=== PATIENT | female | born 1975 | race Caucasian/White ===

== ENCOUNTER 2016-12-26 11:14 | Emergency (ER) | payer OTHER ==
[~2016-12-26] VITALS: Ht 167.8 cm; Wt 86.0 kg
[2016-12-26 11:15] VITALS: Ht 167.8 cm; Wt 86.0 kg
[2016-12-26] MEDS ORDERED: ELIM TOP (11:39)
--- NOTE | 2016-12-26 11:43 | ERD ---
ER Documentation Chief Complaint Date/Time DATE: 12/26/16 TIME: 11:41 Chief Complaint COUGH , SWELLING ON FEET X 2 WEEKS , RASH X 1 MONTH HPI 41-year-old female presents the emergency department complaining of "I have bugs all over me." Patient states that she has been treated with Elimite in the past, but that she continues to live a place that she thinks has bedbugs. She states that she has itchiness all over her body. These have not been getting worse over the last 2-3 months. She denies any fevers, chills. She also states that she has been noncompliant with her psychiatric medications but denies suicidal or homicidal thoughts. ROS All systems reviewed and are negative except as per history of present illness. Medications Home Meds Active Scripts Permethrin* (Elimite*) 5% Cr, 1 APPLIC TOP ONCE, #1 TUB Prov:KALI SLADE 12/26/16 FmHx Noncontributory for chief complaint Physical Exam Vitals Vital Signs Date Time Temp Pulse Resp B/P Pulse Ox O2 Delivery O2 Flow Rate FiO2 12/26/16 11:15 98.3 78 18 162/89 99 Physical Exam General: well developed, well nourished, in no distress. Neuro: Normal speech, gait, balance Psych: Linear but pressured thought process. She denies suicidal or homicidal thoughts. Skin: Patient has no significant rash or lesions and no obvious evidence of infestation. Procedures/MDM Patient was taken to a room, seen and examined Medical decision makin-year-old female presents the emergency department complaining of bug bites. At this time, patient shows no evidence of significant infestation, but given her psychiatric issues she clearly needs to be treated if not for any other reason other than her psychiatric issues. She clearly has anxiety and likely bipolar disease that is untreated and has been referred back to her psychiatrist. At this time, she is not imminently dangerous to herself or others. Departure Diagnosis: Primary Impression: Bug bites Condition: Stable Patient Instructions: Insect Bite Additional Instructions: Please see your psychiatrist to recheck the need for your medications. Return for any problems or concerns BERLINKALI CASTLE Dec 26, 2016 11:43
== END 2016-12-26 12:10 | disposition home or self-care (01) ==
LOC: FTE 11:14
DX: S90.869A Insect bite (nonvenomous), unspecified foot, initial encounter (principal); W57.XXXA Bitten or stung by nonvenomous insect and other nonvenomous arthropods, initial encounter; Y92.9 Unspecified place or not applicable
CPT/HCPCS: 99283